=== PATIENT | female | born 1980 | race African-American/Black ===

== ENCOUNTER 2021-05-17 10:26 | Emergency (ER) | payer MEDICAID, OTHER ==
[~2021-05-17] VITALS: Ht 165.1 cm; Wt 75.0 kg
[2021-05-17] MEDS ORDERED: ACETAMINOPHEN WITH CODEINE 300/30MG TABLET PO ONE (11:45)
[2021-05-17] MEDS ORDERED: T3 PO (12:59)
[2021-05-17] MEDS ORDERED: NAPR-681 MT (12:59)
[2021-05-17 14:14] VITALS: BP 123/75
== END 2021-05-17 14:16 | disposition home or self-care (01) ==
LOC: ER 10:26
DX: S93.401A Sprain of unspecified ligament of right ankle, initial encounter (principal); E11.9 Type 2 diabetes mellitus without complications; V89.2XXA Person injured in unspecified motor-vehicle accident, traffic, initial encounter; Y93.89 Activity, other specified; Y92.89 Other specified places as the place of occurrence of the external cause; Y99.8 Other external cause status
CPT/HCPCS: 73600; 99283